=== PATIENT | male | born 1960 | race American Indian/Alaskan Native ===

== ENCOUNTER 2019-07-29 12:21 | Emergency (ER) | payer SELFPAY ==
[2019-07-29 12:31] VITALS: BP 122/73
--- NOTE | 2019-07-29 12:31 | Emergency Department Report ---
Blank Doc - Documentation Documentation: 59-year-old male that presents with right sided upper back pains. Denies any chest pain or abdominal pain. Denies any trauma or injuries. This initial assessment/diagnostic orders/clinical plan/treatment(s) is/are subject to change based on patient's health status, clinical progression and re- assessment by fellow clinical providers in the ED. Further treatment and workup at subsequent clinical providers discretion. Patient/guardians urged not to elope from the ED as their condition may be serious if not clinically assessed and managed. Initial orders include: 1- Patient sent to [facility] for further evaluation and treatment
== END 2019-07-29 13:15 | disposition left against medical advice (07) ==
LOC: ED 12:21
DX: M54.9 Dorsalgia, unspecified (principal); Z53.21 Procedure and treatment not carried out due to patient leaving prior to being seen by health care provider

== ENCOUNTER 2019-08-03 10:43 | Outpatient (CLI) | payer MEDICARE | END 2019-08-03 10:44 | disposition home or self-care (01) | LOC: LAB 10:43 | PROVIDERS: ATTEND Psychiatry & Neurology Psychiatry | DX: F25.9 Schizoaffective disorder, unspecified (principal) | CPT/HCPCS: 36415; 86592 ==

== ENCOUNTER 2019-10-18 22:15 | Emergency (ER) | payer MEDICARE ==
[2019-10-19 00:02] LABS: Basophils # (Auto) 0.1 K/mm3 (0.0-0.1); Basophils % (Auto) 1.2 % (0.0-1.8); Eosinophils # (Auto) 0.3 K/mm3 (0.0-0.4); Hematocrit 43.7 % (35.5-45.6); Hemoglobin 14.7 gm/dl (11.8-15.2); Lymphocytes # (Auto) 1.9 K/mm3 (1.2-5.4); Lymphocytes % (Auto) 37.6 % (13.4-35.0); Mean Corpuscular HGB Conc 34 % (32-34); Mean Corpuscular Volume 91 fl (84-94); Monocytes # (Auto) 0.3 K/mm3 (0.0-0.8); Monocytes % (Auto) 6.4 % (0.0-7.3); Platelet Count 271 K/mm3 (140-440); Red Cell Distribution Width 13.4 % (13.2-15.2)
--- NOTE | 2019-10-19 00:14 | XRay Report ---
CHEST 2 VIEWS, 10/18/2019 11:45 PM INDICATION: Hemoptysis COMPARISON: None FINDINGS: Support devices: None Heart: Heart size appears normal. Lungs/pleura: The lungs are clear of focal airspace disease or significant pleural effusion. Additional findings: Evaluation of bony structures demonstrates no evidence of acute bony abnormality . IMPRESSION: 1. No evidence of acute cardiopulmonary process. Signer Name: Liyah Gonsalez MD Signed: 10/19/2019 12:10 AM Workstation Name: [id number]
[2019-10-19 00:23] LABS: BUN/Creatinine Ratio 10; Blood Urea Nitrogen 12 mg/dL (9-20); Calcium 9.1 mg/dL (8.4-10.2); Hemolysis Index 8
[2019-10-19] MEDS ORDERED: ONDANSETRON 4 MG ODT TAB PO ONE (03:32)
--- NOTE | 2019-10-19 05:02 | Emergency Department Report ---
ED General Adult HPI - General Chief complaint: Upper Respiratory Infection Stated complaint: COUGH AND VOMITING BLOOD Source: patient Mode of arrival: Ambulatory Limitations: No Limitations - History of Present Illness Initial comments: Patient is a 59-year-old -[place] male with a history of chronic cocaine and other illicit drug abuse who presents to the ED with acute onset persistent nausea and vomiting intermittently for the last 2 days, with dry cough with occasional hemoptysis. Patient also complains of intermittent hematemesis the last 12 hours. Patient states that he has been distracts persistently the last of which was 2 days ago. Patient states that he has been to this drug rehabilitation several times but continues to relapse. Patient states that he is here for reevaluation of his persistent cough and intermittent nausea and vomiting and not for drug rehabilitation. Patient denies chest pain, shortness of breath, fever, chills, dizziness, syncope, abdominal pain, diarrhea, sore throat or nasal and sinus congestion. MD Complaint: nausea, vomiting, dry cough -: Sudden, days(s) (2) Location: chest, abdomen Radiation: non-radiation Severity scale (0 -10): 2 Quality: aching, dull Consistency: intermittent Improves with: none Worsens with: none Associated Symptoms: denies other symptoms, cough, nausea/vomiting. denies: confusion, chest pain, diaphoresis, fever/chills, headaches, loss of appetite, malaise, seizure, shortness of breath, syncope, weakness Treatments Prior to Arrival: none - Related Data Previous Rx's Medication Instructions Recorded Last Taken Type Brompheniramine/Pseudoephed/Dm 5 ml PO Q6H PRN #118 ml 10/19/19 Unknown Rx [Bromfed Dm Cough Syrup] Famotidine [Pepcid] 20 mg PO Q12H #30 tablet 10/19/19 Unknown Rx Ondansetron [Zofran Odt] 4 mg PO Q6HR PRN #15 tab.rapdis 10/19/19 Unknown Rx Allergies Allergy/AdvReac Type Severity Reaction Status Date / Time amoxicillin Allergy Rash Verified 07/29/19 12:25 ED Review of Systems ROS: Stated complaint: COUGH AND VOMITING BLOOD Other details as noted in HPI Constitutional: denies: chills, fever Eyes: denies: eye pain, eye discharge, vision change ENT: denies: ear pain, throat pain Respiratory: cough. denies: shortness of breath, wheezing Cardiovascular: denies: chest pain, palpitations Endocrine: no symptoms reported Gastrointestinal: nausea, vomiting, hematemesis. denies: abdominal pain, diarrhea Genitourinary: denies: urgency, dysuria Musculoskeletal: denies: back pain, joint swelling, arthralgia Skin: denies: rash, lesions Neurological: denies: headache, weakness, paresthesias Psychiatric: denies: anxiety, depression Hematological/Lymphatic: denies: easy bleeding, easy bruising ED Past Medical Hx - Past Medical History Hx GERD: Yes Hx Renal Disease: Yes Hx Psychiatric Treatment: Yes (alcoholism) - Surgical History Additional Surgical History: Hernia repair - Social History Smoking Status: Current Every Day Smoker Substance Use Type: Alcohol, Other - Medications Home Medications: Home Medications Medication Instructions Recorded Confirmed Last Taken Type Brompheniramine/Pseudoephed/Dm 5 ml PO Q6H PRN #118 ml 10/19/19 Unknown Rx [Bromfed Dm Cough Syrup] Famotidine [Pepcid] 20 mg PO Q12H #30 tablet 10/19/19 Unknown Rx Ondansetron [Zofran Odt] 4 mg PO Q6HR PRN #15 tab.rapdis 10/19/19 Unknown Rx ED Physical Exam - General Limitations: No Limitations General appearance: alert, in no apparent distress - Head Head exam: Present: atraumatic, normocephalic, normal inspection - Eye Eye exam: Present: normal appearance, PERRL, EOMI Pupils: Present: normal accommodation - ENT ENT exam: Present: normal exam, normal orophraynx, mucous membranes moist, TM's normal bilaterally, normal external ear exam - Neck Neck exam: Present: normal inspection, full ROM - Respiratory Respiratory exam: Present: normal lung sounds bilaterally. Absent: respiratory distress, wheezes, rales, rhonchi, chest wall tenderness, accessory muscle use, decreased breath sounds - Cardiovascular Cardiovascular Exam: Present: regular rate, normal rhythm, normal heart sounds. Absent: systolic murmur, diastolic murmur, rubs, gallop - GI/Abdominal GI/Abdominal exam: Present: soft, normal bowel sounds. Absent: tenderness, guarding, hyperactive bowel sounds - Extremities Exam Extremities exam: Present: normal inspection, full ROM, normal capillary refill - Back Exam Back exam: Present: normal inspection, full ROM. Absent: muscle spasm, paraspinal tenderness - Neurological Exam Neurological exam: Present: alert, oriented X3, CN II-XII intact, normal gait, reflexes normal - Psychiatric Psychiatric exam: Present: normal affect, normal mood - Skin Skin exam: Present: warm, dry, intact, normal color. Absent: rash ED Course Vital Signs 10/18/19 23:08 Temperature 97.7 F Pulse Rate 58 L Respiratory 18 Rate Blood Pressure 119/77 O2 Sat by Pulse 99 Oximetry ED Medical Decision Making - Lab Data Result diagrams: 10/18/19 23:49 10/18/19 23:49 - EKG Data Rate: bradycardia - EKG Data 10/19/19 05:02 EKG shows sinus bradycardia with a ventricular rate of [address] or T- wave abnormalities. - Radiology Data Radiology results: report reviewed, image reviewed Chest x-ray shows no acute cardiopulmonary abnormalities or pneumonitis. - Medical Decision Making This is a 59-year-old -[place] male with a history of chronic cocaine abuse who presented to the ED with persistent dry cough, nausea and vomiting, intermittent hematemesis. In the ED, patient is alert and oriented 3 and is not in distress. The EKG shows sinus bradycardia with a ventricular rate of 48 beats a minute and no abnormal ST or T wave changes. Lab test results were reviewed and are nonactionable. Chest x-ray shows no acute cardiopulmonary abnormalities or pneumonitis. Patient was treated for nausea and vomiting and on reevaluation, patient's nausea and vomiting resolved patient was discharged home on antiemetics and advised to follow-up with his primary care physician in 5-7 days for reevaluation. - Differential Diagnosis bronchitis; pneumonia; ACS; URI; Dehydration Critical care attestation.: If time is entered above; I have spent that time in minutes in the direct care of this critically ill patient, excluding procedure time. ED Disposition Clinical Impression: Nausea and vomiting in adult Acute bronchitis Qualifiers: Bronchitis organism: other organism Qualified Code(s): J20.8 - Acute bronchitis due to other specified organisms Disposition: DC-01 TO HOME OR SELFCARE Is pt being admited?: No Does the pt Need Aspirin: No Condition: Stable Instructions: Acute Bronchitis (ED), Acute Nausea and Vomiting (ED) Additional Instructions: Take medication with food, drink plenty of fluids and follow-up with your primary care physician in 5-7 days for reevaluation. Return to the ED immediately if symptoms get worse. Consider going back to the cocaine or drug rehabilitation. Prescriptions: Brompheniramine/Pseudoephed/Dm [Bromfed Dm Cough Syrup] 5 ml PO Q6H PRN #118 ml PRN Reason: Cough Famotidine [Pepcid] 20 mg PO Q12H #30 tablet Ondansetron [Zofran Odt] 4 mg PO Q6HR PRN #15 tab.rapdis PRN Reason: Nausea Referrals: [facility] [Outside] - 3-5 Days Time of Disposition: 05:05 Print Language: BENGALI
[2019-10-19 06:09] VITALS: BP 107/71
== END 2019-10-19 05:45 | disposition home or self-care (01) ==
LOC: ED 22:15
DX: J02.9 Acute pharyngitis, unspecified (principal); K21.9 Gastro-esophageal reflux disease without esophagitis; F17.200 Nicotine dependence, unspecified, uncomplicated
CPT/HCPCS: 36415; 71046; 80048; 84484; 85025; 93005; 93010; 99284; Q0162

== ENCOUNTER 2019-11-19 15:56 | Emergency (ER) | payer MEDICARE ==
[2019-11-19] MEDS ORDERED: FAMOTIDINE 20 MG TAB PO ONE (20:50)
[2019-11-19] MEDS ORDERED: SUCRALFATE 1 GM/10 ML ORAL LIQD PO ONE (20:50)
--- NOTE | 2019-11-19 20:50 | Emergency Department Report ---
ED General Adult HPI - General Chief complaint: GI Bleed Stated complaint: STOMACH ULCER Time Seen by Provider: 11/19/19 20:37 Source: patient, RN notes reviewed, old records reviewed Mode of arrival: Ambulatory Limitations: No Limitations - History of Present Illness Initial comments: Patient is a 59-year-old gentleman. The patient is not known to myself previously. He presents to the ER with complaint of 3 episodes of bloody emesis 4 days ago, now resolved, and loose bowel movements, 2-3, nonbloody, not black, not tarry, without associated pain. He denies headache, neck pain, chest pain, abdominal pain and shortness of breath. He denies DVT and pulmonary embolism risk factors, and reports that he does not take systemic anticoagulation. Bl oody emesis did not have exacerbating or relieving factors. Report of loose bowel movements does not have exacerbating or relieving factors. He is asking to drink water at this time. He was seen in this hospital last month for similar symptoms. -: Sudden Improves with: none Worsens with: none Associated Symptoms: denies other symptoms - Related Data Previous Rx's Medication Instructions Recorded Last Taken Type Brompheniramine/Pseudoephed/Dm 5 ml PO Q6H PRN #118 ml 10/19/19 Unknown Rx [Bromfed Dm Cough Syrup] Famotidine [Pepcid] 20 mg PO Q12H #30 tablet 11/19/19 Unknown Rx Ondansetron [Zofran ODT TAB] 4 mg PO Q6HR PRN #15 tab.rapdis 11/19/19 Unknown Rx Allergies Allergy/AdvReac Type Severity Reaction Status Date / Time amoxicillin Allergy Rash Verified 11/19/19 15:58 ED Review of Systems ROS: Stated complaint: STOMACH ULCER Other details as noted in HPI Constitutional: denies: fever Eyes: denies: eye discharge Respiratory: denies: wheezing Cardiovascular: denies: syncope Gastrointestinal: nausea, vomiting. denies: abdominal pain, melena, hematochezia Genitourinary: denies: dysuria Neurological: denies: weakness Hematological/Lymphatic: denies: easy bleeding ED Past Medical Hx - Past Medical History Hx GERD: Yes Hx Renal Disease: Yes Hx Psychiatric Treatment: Yes (alcoholism) - Surgical History Additional Surgical History: Hernia repair - Social History Smoking Status: Current Every Day Smoker Substance Use Type: Alcohol, Other - Medications Home Medications: Home Medications Medication Instructions Recorded Confirmed Last Taken Type Brompheniramine/Pseudoephed/Dm 5 ml PO Q6H PRN #118 ml 10/19/19 Unknown Rx [Bromfed Dm Cough Syrup] Famotidine [Pepcid] 20 mg PO Q12H #30 tablet 11/19/19 Unknown Rx Ondansetron [Zofran ODT TAB] 4 mg PO Q6HR PRN #15 tab.rapdis 11/19/19 Unknown Rx ED Physical Exam - General Limitations: No Limitations General appearance: alert, in no apparent distress - Head Head exam: Present: atraumatic, normocephalic - Eye Eye exam: Present: normal appearance, EOMI. Absent: nystagmus - ENT ENT exam: Present: normal exam, normal orophraynx, mucous membranes moist, normal external ear exam - Neck Neck exam: Present: normal inspection, full ROM. Absent: tenderness, meningism us - Respiratory Respiratory exam: Present: normal lung sounds bilaterally. Absent: respiratory distress - Cardiovascular Cardiovascular Exam: Present: regular rate, normal rhythm, normal heart sounds. Absent: bradycardia, tachycardia, irregular rhythm, systolic murmur, diastolic murmur, rubs, gallop - GI/Abdominal GI/Abdominal exam: Present: soft, normal bowel sounds. Absent: distended, tenderness, guarding, rebound, rigid, pulsatile mass - Rectal Rectal exam: Present: deferred - Extremities Exam Extremities exam: Present: normal inspection, full ROM, other (2+ pulses noted in the bilateral upper and lower extremities. There is no long bony tenderness. The pelvis is stable. The muscular compartments are soft. There is no palpable cord. There is no redness, pus or streaking.). Absent: pedal edema, calf tenderness - Back Exam Back exam: Present: normal inspection, full ROM. Absent: tenderness, CVA tenderness (R), CVA tenderness (L), paraspinal tenderness, vertebral tenderness - Neurological Exam Neurological exam: Present: alert, normal gait, other (there is no facial droop. The tongue is midline. The extraocular movements are intact bilaterally. There is 5/5 strength in the bilateral upper and lower extremities. Sensation is intact to light touch in the bilateral upper and lower extremities. Hearing is intact. Tongue is midline. Speech is fluid, lucent and intact. Appropriate thought content. V1, V2, V3 intact bilaterally. Walks with a steady gait. There is no past-pointing. There is normal [id number]. There is a negative Romberg examination.). Absent: motor sensory deficit - Psychiatric Psychiatric exam: Present: normal affect, normal mood - Skin Skin exam: Present: warm, dry, intact, normal color. Absent: rash ED Course Vital Signs 11/19/19 11/19/19 11/19/19 16:05 20:46 21:00 Temperature 98 F 98.3 F Pulse Rate 69 64 70 Respiratory 18 14 17 Rate Blood Pressure 133/83 145/82 Blood Pressure 127/89 133/83 [Right] O2 Sat by Pulse 95 98 87 Oximetry - Reevaluation(s) Reevaluation #1: 11/19/19 21:33 Remainder of laboratory studies unremarkable. EKG unremarkable. Resting comfortably at this time, and in no acute distress. We will discharge ED Medical Decision Making - Lab Data Result diagrams: 11/19/19 20:58 11/19/19 20:58 Vital Signs 11/19/19 11/19/19 11/19/19 16:05 20:46 21:00 Temperature 98 F 98.3 F Pulse Rate 69 64 70 Respiratory 18 14 17 Rate Blood Pressure 133/83 145/82 Blood Pressure 127/89 133/83 [Right] O2 Sat by Pulse 95 98 87 Oximetry Lab Results 11/19/19 11/19/19 Range/Units 20:58 20:58 WBC 3.9 L (4.5-11.0) K/mm3 RBC 5.33 H (3.65-5.03) M/mm3 Hgb 15.9 H (11.8-15.2) gm/dl Hct 47.9 H (35.5-45.6) % MCV 90 (84-94) fl MCH 30 (28-32) pg MCHC 33 (32-34) % RDW 12.9 L (13.2-15.2) % Plt Count 230 (140-440) K/mm3 PT 15.2 H (12.2-14.9) Sec. INR 1.18 H (0.87-1.13) - EKG Data -: EKG Interpreted by Ak EKG shows normal: sinus rhythm Rate: tachycardia - EKG Data 11/19/19 21:33 Bradycardia, sinus, 55 bpm, normal axis, QTC 410 ms, left ventricular hypertrophy, not consistent with STEMI. - Radiology Data Radiology results: pending, report reviewed, image reviewed X-ray of the chest is negative for acute disease - Medical Decision Making Differential diagnosis, including but not limited to: GERD, gastritis, hiatal hernia, Citlaly-See tear, IBS, enteritis Assessment and plan: 59-year-old gentleman with resolved nausea and vomiting of blood, hemoglobin, hematocrit elevated with compared to prior, with report of painless loose bowel movements. He declined a rectal examination. He is afebrile with reassuring vital signs. His physical examination is benign and unremarkable. X-ray of the chest is unremarkable. CBC improved when compared to prior. CMP pending at this time. EKG pending at this time. He endorses compliance with Protonix. Critical care attestation.: If time is entered above; I have spent that time in minutes in the direct care of this critically ill patient, excluding procedure time. ED Disposition Clinical Impression: History of hematemesis, History of diarrhea Disposition: - TO HOME OR SELFCARE Is pt being admited?: No Does the pt Need Aspirin: No Condition: Stable Additional Instructions: Avoid consumption of Motrin, ibuprofen, Naprosyn, Aleve, heavy and spicy foods. Avoid consumption of alcohol. The plenty of fiber, rested most, lean protein. Make certain to drink 4-6 cups of water per day for the foreseeable future. Take the prescribed medications as needed and directed. Recommend follow-up with a primary care doctor or tangled yarn spool straightener within the next 7-10 days. Return to emergency room right away with new, worsening or different symptoms, or symptoms not present on the initial emergency room evaluation. Prescriptions: Famotidine [Pepcid] 20 mg PO Q12H #30 tablet Ondansetron [Zofran ODT TAB] 4 mg PO Q6HR PRN #15 tab.rapdis PRN Reason: Nausea Referrals: [facility] [Provider Group] - 3-[address] [facility] [Provider Group] - 3-5 Days [facility] [Provider Group] - 3-5 Days Forms: Accompanied Note
[2019-11-19 21:09] LABS: Hematocrit 47.9 % (35.5-45.6); Hemoglobin 15.9 gm/dl (11.8-15.2); Mean Corpuscular HGB Conc 33 % (32-34); Mean Corpuscular Volume 90 fl (84-94); Platelet Count 230 K/mm3 (140-440); Red Blood Count 5.33 M/mm3 (3.65-5.03); Red Cell Distribution Width 12.9 % (13.2-15.2)
[2019-11-19 21:16] VITALS: BP 145/82
--- NOTE | 2019-11-19 21:16 | XRay Report ---
CHEST 1 VIEW, 11/19/2019 8:53 PM CLINICAL INFORMATION/INDICATION: Chest pain COMPARISON: Chest radiograph, 10/18/2019 FINDINGS: SUPPORT DEVICES: None. HEART: The cardiac silhouette is normal in size. LUNGS/PLEURA: The lungs are clear of focal airspace disease or significant pleural effusion. ADDITIONAL FINDINGS: No additional acute findings. IMPRESSION: 1. No evidence of acute cardiopulmonary process. Signer Name: Liyah Gonsalez MD Signed: 11/19/2019 9:11 PM Workstation Name: [email or web address]
[2019-11-19 21:19] LABS: INR 1.18 (0.87-1.13)
[2019-11-19 21:25] LABS: Alanine Aminotransferase 16 units/L (7-56); Albumin 4.4 g/dL (3.9-5); BUN/Creatinine Ratio 18; Blood Urea Nitrogen 22 mg/dL (9-20); Calcium 9.5 mg/dL (8.4-10.2); Hemolysis Index 12
== END 2019-11-19 21:47 | disposition home or self-care (01) ==
LOC: ED 15:56
DX: K92.0 Hematemesis (principal); R19.7 Diarrhea, unspecified; K21.9 Gastro-esophageal reflux disease without esophagitis; F17.200 Nicotine dependence, unspecified, uncomplicated; Z98.890 Other specified postprocedural states; Z79.899 Other long term (current) drug therapy; Z88.1 Allergy status to other antibiotic agents
CPT/HCPCS: 36415; 71045; 80053; 82550; 83735; 85027; 85610; 93005; 93010